=== PATIENT | male | born 1995 | race Asian ===

== ENCOUNTER → 2019-06-26 | Outpatient (CLI) | payer OTHER ==
[~2019-06-26] MED LIST: FOLIC ACID 11 MG/TA1 PO
[2019-06-26 11:20] LABS: MEAN CELL VOLUME 66 fl (80.0-100.0); MEAN CORPUSCULAR HGB CONC 33 g/dl (33.0-37.0); PLATELET COUNT 122 K/mm3 (130-400); RED BLOOD COUNT 3.46 M/mm3 (4.20-5.60); REDCELL DISTRIBUTION WIDTH-CV 27.3 % (11.5-14.5)
[2019-06-26 11:21] LABS: HEMATOCRIT 22.8 % (42.0-52.0); HEMOGLOBIN 7.4 g/dl (13.5-18.0); MEAN CORPUSCULAR HEMOGLOBIN 21 pg (27.0-31.0)
[2019-06-26 12:12] LABS: BAND 1 % (0-10); LYMPHOCYTE 54 % (20.0-51.0); METAMYELOCYTE 2 % (0-0); NEUTROPHILS 37 % (42.0-75.2); NUCLEATED RED BLOOD CELL 13 (0-6)
[2019-06-26 12:16] LABS: PLATELET ESTIMATE NORMAL (NORMAL); TEAR DROP CELLS 1+
[2019-06-26 12:17] LABS: POLYCHROMASIA 1+; SPHEROCYTE 1+
[2019-06-26 12:18] LABS: ANISOCYTOSIS 2+; HYPOCHROMIA 1+; MICROCYTOSIS 2+; POIKILOCYTOSIS 3+; TARGET CELLS 2+
[2019-06-26 12:19] LABS: HELMET CELLS 1+; OVALOCYTES 1+
== END ==
LOC: COL.LAB 10:08
PROVIDERS: Internal Medicine
DX: D56.5 Hemoglobin E-beta thalassemia (principal)

== ENCOUNTER 2019-06-27 08:11 | Outpatient (RCR) | payer OTHER ==
[2019-06-27] VITALS (11 sets, daily range): BP systolic 98–109; BP diastolic 58–75; PULSE 68–84; TEMP 97.7–98.1
[~2019-06-27] VITALS: Ht 170.2 cm; Wt 54.5 kg
[2019-06-27] MEDS ORDERED: FOLIC ACID 11 MG/TA1 PO (11:55)
--- NOTE | 2019-06-27 14:45 | NUR ---
no vital signs recorded from [id number] -[id number] due to increase in pt admission during this period
== END 2019-06-27 15:40 | disposition home or self-care (01) ==
LOC: EUO 08:11
DX: D56.5 Hemoglobin E-beta thalassemia (principal)
CPT/HCPCS: J7050; P9016

== ENCOUNTER 2019-10-13 08:00 | Outpatient (RCR) | payer OTHER ==
[2019-10-10 13:30] LABS: MEAN CELL VOLUME 62 fl (80.0-100.0); MEAN CORPUSCULAR HGB CONC 33 g/dl (33.0-37.0); PLATELET COUNT 179 K/mm3 (130-400); REDCELL DISTRIBUTION WIDTH-CV 29.4 % (11.5-14.5)
[2019-10-10 13:54] LABS: ANISOCYTOSIS 3+; BAND 3 % (0-10); HYPOCHROMIA 3+; LYMPHOCYTE 54 % (20.0-51.0); METAMYELOCYTE 2 % (0-0); MICROCYTOSIS 3+; NEUTROPHILS 40 % (42.0-75.2); NUCLEATED RED BLOOD CELL 8 (0-6); OVALOCYTES 2+; PLATELET ESTIMATE NORMAL (NORMAL); POIKILOCYTOSIS 3+; SCHISTOCYTES 2+; TARGET CELLS 3+; TEAR DROP CELLS 3+
[2019-10-10 13:55] LABS: HEMATOCRIT 24.2 % (42.0-52.0); MEAN CORPUSCULAR HEMOGLOBIN 21 pg (27.0-31.0)
[~2019-10-13] VITALS: Ht 170.2 cm; Wt 54.0 kg
[2019-10-13] VITALS (9 sets, daily range): BP systolic 94–103; BP diastolic 65–78; PULSE 66–79; TEMP 96.9–98.6
--- NOTE | 2019-10-13 10:34 | NUR ---
Pt stated his arm was getting cold and requested blood slowed down. PIV site assessed and no complications noted, site was soft and C/D/I.
--- NOTE | 2019-10-13 14:30 | NUR ---
Pt [place] blood tx well. Pt discharged per ambulation.
== END 2019-10-13 15:28 | disposition home or self-care (01) ==
LOC: EUO 08:00
PROVIDERS: Internal Medicine
DX: D56.5 Hemoglobin E-beta thalassemia (principal)
CPT/HCPCS: J7050; P9016

== ENCOUNTER → 2020-05-15 | Outpatient (CLI) | payer OTHER ==
[2020-05-15 11:55] LABS: MEAN CELL VOLUME 65 fl (80.0-100.0); MEAN CORPUSCULAR HGB CONC 32 g/dl (33.0-37.0); PLATELET COUNT 119 K/mm3 (130-400); RED BLOOD COUNT 3.71 M/mm3 (4.20-5.60); REDCELL DISTRIBUTION WIDTH-CV 27.3 % (11.5-14.5)
[2020-05-15 12:22] LABS: HEMATOCRIT 24.1 % (42.0-52.0); HEMOGLOBIN 7.8 g/dl (13.5-18.0); MEAN CORPUSCULAR HEMOGLOBIN 21 pg (27.0-31.0)
[2020-05-15 12:49] LABS: ANISOCYTOSIS 3+; HYPOCHROMIA 3+; LYMPHOCYTE 77 % (20.0-51.0); METAMYELOCYTE 1 % (0-0); MICROCYTOSIS 2+; NEUTROPHILS 17 % (42.0-75.2); NUCLEATED RED BLOOD CELL 19 (0-6); OVALOCYTES 1+; PLATELET ESTIMATE NORMAL (NORMAL); POIKILOCYTOSIS 2+; SPHEROCYTE 1+; TARGET CELLS 3+
[2020-05-15 12:50] LABS: SCHISTOCYTES 1+
[2020-05-16 09:16] LABS: PATHOLOGY DIFF REVIEW OK +
== END ==
LOC: COL.LAB 11:29
PROVIDERS: Internal Medicine
DX: D56.5 Hemoglobin E-beta thalassemia (principal)

== ENCOUNTER 2020-05-17 13:14 | Outpatient (RCR) | payer OTHER ==
[~2020-05-17] VITALS: Ht 170.2 cm; Wt 52.0 kg
[2020-05-17] VITALS (9 sets, daily range): BP systolic 93–105; BP diastolic 66–79; PULSE 77–102; TEMP 98.1–98.5
== END 2020-05-17 20:03 | disposition home or self-care (01) ==
LOC: EUO 13:14
DX: D56.5 Hemoglobin E-beta thalassemia (principal)
CPT/HCPCS: J7050; P9016

== ENCOUNTER → 2020-07-26 | Outpatient (CLI) | payer OTHER ==
[2020-07-26 17:30] LABS: ALBUMIN 5.1 gm/dL (3.5-5.0); BILIRUBIN,TOTAL 3.2 mg/dL (0.0-1.0); CALCIUM 9.6 mg/dL (8.4-10.2); CREATININE, serum 0.58 (0.66-1.25); POTASSIUM 4.1 mmol/L (3.4-5.0); TOTAL PROTEIN 8.6 gm/dL (6.4-8.2)
== END ==
LOC: COL.LAB 16:13
PROVIDERS: Internal Medicine
DX: D56.5 Hemoglobin E-beta thalassemia (principal)

== ENCOUNTER → 2020-08-15 | Outpatient (CLI) | payer OTHER ==
[~2020-08-15] MED LIST changes: +JADENU360 MG PO
[2020-08-15 17:05] LABS: MEAN CELL VOLUME 66 fl (80.0-100.0); MEAN CORPUSCULAR HGB CONC 34 g/dl (33.0-37.0); PLATELET COUNT 128 K/mm3 (130-400); RED BLOOD COUNT 3.52 M/mm3 (4.20-5.60); REDCELL DISTRIBUTION WIDTH-CV 26.3 % (11.5-14.5)
[2020-08-15 17:11] LABS: HEMATOCRIT 23.2 % (42.0-52.0); HEMOGLOBIN 7.8 g/dl (13.5-18.0); MEAN CORPUSCULAR HEMOGLOBIN 22 pg (27.0-31.0)
[2020-08-15 17:14] LABS: ALBUMIN 4.9 gm/dL (3.5-5.0); BILIRUBIN,TOTAL 3.6 mg/dL (0.0-1.0); CALCIUM 9.3 mg/dL (8.4-10.2); CREATININE, serum 0.55 (0.66-1.25); POTASSIUM 4.3 mmol/L (3.4-5.0); TOTAL PROTEIN 8.5 gm/dL (6.4-8.2)
[2020-08-15 17:36] LABS: IRON,SERUM 256 ug/dL (35-150)
[2020-08-15 17:45] LABS: TOTAL IRON BINDING CAPACITY 308 ug/dL (261-462)
[2020-08-15 18:32] LABS: ANISOCYTOSIS 3+; BAND 1 % (0-10); EOSINOPHIL 1 % (0-4); LYMPHOCYTE 56 % (20.0-51.0); MYELOCYTE 1 % (0-0); NEUTROPHILS 37 % (42.0-75.2); NUCLEATED RED BLOOD CELL 7 (0-6); POIKILOCYTOSIS 2+; POLYCHROMASIA 2+; SCHISTOCYTES 2+; TARGET CELLS 3+; TEAR DROP CELLS 1+
[2020-08-15 18:33] LABS: MICROCYTOSIS 3+
== END ==
LOC: COL.LAB 16:21
PROVIDERS: Internal Medicine
DX: D56.5 Hemoglobin E-beta thalassemia (principal)

== ENCOUNTER 2020-08-19 07:37 | Outpatient (RCR) | payer OTHER ==
[~2020-08-19] VITALS: Ht 170.2 cm; Wt 52.4 kg
[2020-08-19] VITALS (11 sets, daily range): BP systolic 100–111; BP diastolic 65–78; PULSE 56–80; TEMP 98.1–98.3
[~2020-08-19 07:37] MED LIST changes: -JADENU360 MG PO
[2020-08-19] MEDS ORDERED: JADENU360 MG PO (08:37)
--- NOTE | 2020-08-19 15:05 | NUR ---
Pt tolerates blood transfusions without issue. IV was DC'd with catheter intact and bleeding controlled at site. Pt exits dept at this time with steady gait.
== END 2020-08-19 15:05 | disposition home or self-care (01) ==
LOC: EUO 07:37
DX: D56.5 Hemoglobin E-beta thalassemia (principal)
CPT/HCPCS: J7050; P9016

== ENCOUNTER → 2020-09-27 | Outpatient (CLI) | payer OTHER ==
[~2020-09-27] MED LIST changes: +JADENU360 MG PO
[2020-09-27 13:58] LABS: MEAN CELL VOLUME 69 fl (80.0-100.0); MEAN CORPUSCULAR HGB CONC 32 g/dl (33.0-37.0); PLATELET COUNT 150 K/mm3 (130-400); REDCELL DISTRIBUTION WIDTH-CV 26.9 % (11.5-14.5)
[2020-09-27 14:07] LABS: HEMATOCRIT 26.1 % (42.0-52.0); HEMOGLOBIN 8.4 g/dl (13.5-18.0); MEAN CORPUSCULAR HEMOGLOBIN 22 pg (27.0-31.0)
[2020-09-27 14:34] LABS: ANISOCYTOSIS 2+; BAND 5 % (0-10); EOSINOPHIL 2 % (0-4); LYMPHOCYTE 52 % (20.0-51.0); METAMYELOCYTE 1 % (0-0); NEUTROPHILS 39 % (42.0-75.2); NUCLEATED RED BLOOD CELL 14 (0-6); PLATELET ESTIMATE NORMAL (NORMAL); SCHISTOCYTES 2+; TARGET CELLS 3+; TEAR DROP CELLS 3+
[2020-09-27 14:45] LABS: ALBUMIN 5.1 gm/dL (3.5-5.0); BILIRUBIN,TOTAL 3.2 mg/dL (0.0-1.0); CALCIUM 9.4 mg/dL (8.4-10.2); CREATININE, serum 0.5 (0.66-1.25); IRON,SERUM 268 ug/dL (35-150); POTASSIUM 4.2 mmol/L (3.4-5.0); TOTAL PROTEIN 8.6 gm/dL (6.4-8.2)
[2020-09-27 14:54] LABS: TOTAL IRON BINDING CAPACITY 305 ug/dL (261-462)
== END ==
LOC: COL.LAB 12:43
PROVIDERS: Internal Medicine
DX: D56.5 Hemoglobin E-beta thalassemia (principal)

== ENCOUNTER → 2020-10-25 | Outpatient (CLI) | payer OTHER ==
[2020-10-25 14:23] LABS: MEAN CELL VOLUME 67 fl (80.0-100.0); MEAN CORPUSCULAR HGB CONC 33 g/dl (33.0-37.0); PLATELET COUNT 131 K/mm3 (130-400); RED BLOOD COUNT 3.51 M/mm3 (4.20-5.60); REDCELL DISTRIBUTION WIDTH-CV 26.5 % (11.5-14.5)
[2020-10-25 14:52] LABS: HEMATOCRIT 23.4 % (42.0-52.0); HEMOGLOBIN 7.8 g/dl (13.5-18.0); IRON,SERUM 279 ug/dL (35-150); MEAN CORPUSCULAR HEMOGLOBIN 22 pg (27.0-31.0)
[2020-10-25 14:54] LABS: ALBUMIN 4.9 gm/dL (3.5-5.0); BILIRUBIN,TOTAL 4.4 mg/dL (0.0-1.0); CALCIUM 9.9 mg/dL (8.4-10.2); CREATININE, serum 0.55 (0.66-1.25); POTASSIUM 4.1 mmol/L (3.4-5.0); TOTAL PROTEIN 8.2 gm/dL (6.4-8.2)
[2020-10-25 14:58] LABS: ANISOCYTOSIS 3+; BAND 1 % (0-10); LYMPHOCYTE 48 % (20.0-51.0); METAMYELOCYTE 1 % (0-0); MYELOCYTE 1 % (0-0); NEUTROPHILS 46 % (42.0-75.2); NUCLEATED RED BLOOD CELL 4 (0-6); POIKILOCYTOSIS 3+
[2020-10-25 14:59] LABS: MICROCYTOSIS 2+; STOMATOCYTE 1+; TARGET CELLS 2+; TEAR DROP CELLS 2+
[2020-10-25 15:01] LABS: TOTAL IRON BINDING CAPACITY 308 ug/dL (261-462)
== END ==
LOC: COL.LAB 13:37
PROVIDERS: Internal Medicine
DX: D64.9 Anemia, unspecified (principal)

== ENCOUNTER 2020-10-29 07:36 | Outpatient (RCR) | payer OTHER ==
[~2020-10-29] VITALS: Ht 170.2 cm; Wt 51.9 kg
[2020-10-29 09:37] VITALS: BP 107/75; PULSE 87; TEMP 97.9
[2020-10-29 09:57] VITALS: BP 108/70; PULSE 87; TEMP 98.1
[2020-10-29 10:12] VITALS: BP 97/65; PULSE 82; TEMP 98.3
[2020-10-29 10:42] VITALS: BP 98/67; PULSE 90; TEMP 98.1
[2020-10-29 11:42] VITALS: BP 105/61; PULSE 78; TEMP 98.7
--- NOTE | 2020-10-29 12:20 | NUR ---
Blood transfusion completed without issue. IV DC'd with catheter intact, bleeding controlled at site. Pt ambulates out from dept with steady gait.
[2020-10-29 12:22] VITALS: BP 105/64; PULSE 83; TEMP 98.7
== END 2020-10-29 12:20 ==
LOC: EUO 07:36
DX: D56.5 Hemoglobin E-beta thalassemia (principal)
CPT/HCPCS: J7050; P9016